=== PATIENT | female | born 1960 | race Caucasian/White ===

== ENCOUNTER 2023-03-14 13:07 | Outpatient (REF) | payer OTHER, SELFPAY ==
[2023-03-14 14:33] LABS: MANUAL DIFF FLAG NO
[2023-03-14 15:26] LABS: Basophils Absolute Auto 0.1 X10*3/uL (0.0-0.2); Basophils Percent Auto 1.2 % (0-2); Eosinophils Absolute Auto 0.4 X10*3/uL (0.0-0.4); Eosinophils Percent Auto 5.1 % (0-4); Hematocrit 40.1 % (37.0-47.0); Hemoglobin 13.3 g/dl (12.0-16.0); Imm Gran Abs Auto 0.02 X10*3/uL (0.00-0.03); Imm Gran Pct Auto 0.2 % (0.0-0.4); Lymphocytes Absolute Auto 2.8 X10*3/uL (1.2-4.9); Lymphocytes Percent Auto 33.3 % (20-40); Mean Corpuscular HGB Conc 33.2 g/dl (31.0-35.0); Mean Corpuscular Hemoglobin 29.3 pg (27.0-33.0); Mean Corpuscular Volume 88.3 fL (80.0-98.0); Mean Platelet Volume 9.7 fL (9.4-12.3); Monocytes Absolute Auto 0.8 X10*3/uL (0.1-1.2); Monocytes Percent Auto 9.4 % (2-11); Neutrophils Absolute Auto 4.2 x10*3/uL (2.0-8.3); Neutrophils Percent Auto 50.8 % (45-73); Platelet Count 246 X10*3/uL (160-400); Red Blood Count 4.54 X10*6/uL (4.20-5.50); Red Cell Distribution Width 12.9 % (11.0-16.0); White Blood Count 8.3 X10*3/uL (4.8-10.8)
== END 2023-03-14 13:08 | disposition home or self-care (01) ==
LOC: HO.LAB 13:07
PROVIDERS: PCP Internal Medicine; Visit Provider Internal Medicine Pulmonary Disease
DX: J45.909 Unspecified asthma, uncomplicated (principal); R06.02 Shortness of breath
CPT/HCPCS: 36415; 82785; 85025; 86003

== ENCOUNTER 2023-03-14 13:07 | Outpatient (AMB) | payer OTHER, SELFPAY ==
--- NOTE | 2023-03-14 13:29 | A.OFFVIS_ITS ---
Intake Vital Signs 03/14/23 13:30 Height 5 ft 1 in Weight 165 lb 5.547 oz BMI 31.2 BP 122/72 Blood Pressure Location Lt brachial Position Sitting Pulse 78 Pulse Source Doppler Pulse Oximetry (%) 96 Oxygen Delivery Method Room Air Intake Visit Reasons: Shortness of breath Allergies tetracycline Adverse Reaction (Mild, Verified 03/14/23 13:39) Stomach Upset HPI Shortness of breath HPI Details 62-year-old lady, nonsmoker, with underl saad history of IBS, referred for evaluation of chronic cough. Patient states that she initially started getting it in 2019 after COVID, with recent exacerbation several months prior. She was evaluated by her primary care provider and started on empiric Symbicort with significant improvement. She denies cough in or wheezing at this time. Patient does complain of environmental allergies for which she uses [id number] Malorie. She denies family history of lung disease. Patient denies exposure to industrial dusts. She does have a dog as a pet. [facility] Social History (Updated 03/14/23 @ 13:39 by Komal Vazquez Chad) Patient Tobacco Use Status: Never used Tobacco Review of Systems Const Denies daytime sleepiness, Denies excessive sweating, Denies fatigue, Denies fever(s), Denies lethargy, Denies malaise, Denies night sweats, Denies snoring and Denies weight loss Eyes Denies blurry vision and Denies itchy eyes ENT Denies nasal congestion, Denies post nasal drip, Denies sinus pain, Denies sinus pressure and Denies other ( Thrush) Card Denies chest pain, Denies pedal edema, Denies dyspnea, Denies orthopnea and Denies paroxysmal nocturnal dyspnea Resp Denies cough, Denies hemoptysis, Denies excessive phlegm production, Denies dyspnea, Denies snoring and Denies wheezing GI Denies abdominal pain and Denies heartburn Musc Denies myalgias, Denies arthralgias and Denies joint swelling Skin/Breast Denies rash Neuro Denies memory loss and Denies seizure-like activity Psych Denies abnormal sleep pattern, Denies anxiety and Denies memory loss Endo Denies excessive sweating, Denies fatigue and Denies heat intolerance Erick/Lymph Denies easy bruising Aller/Immun Denies itchy eyes, Denies seasonal rhinorrhea and Denies wheezing Physical Exam Vital Signs: Last Vital Signs Pulse 78 03/14/23 13:30 BP 122/72 03/14/23 13:30 Pulse Ox 96 03/14/23 13:30 Oxygen Delivery Method Room Air 03/14/23 13:30 BMI result Body Mass Index 31.2 Const General: no acute distress and alert Nutritional Appearance: not obese Orientation/consciousness: Other orientation findings ( oriented) HEENT Head: Yes atraumatic Eyes General: appearance normal, both eyes and all related structures Sclerae: sclerae normal EOM: EOMs intact bilaterally Neck Neck: Yes supple Lymphatic: no lymphadenopathy noted Resp Effort & Inspection: normal respiratory effort and no use of accessory muscles Auscultation: clear to auscultation bilaterally Cardio Rate: regular rate Rhythm: regular rhythm Heart sounds: no gallops, no murmurs and no rubs Skin General skin exam: other ( warm) Extrem General: No clubbing, No cyanosis and No edema Assessment & Plan Assessment & Plan (1) Environmental allergies: Code(s): Z91.09 - Other allergy status, other than to drugs and biological substances Plan: Will obtain RAST, IgE level, and CBC with differential for further evaluation. 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 Continue current regimen. Will request recent PFT results from [facility]. Orders: Orders Rast Allergen Today J45.909 - Unspecified asthma, uncomplicated Complete Blood Count Auto Diff Today J45.909 - Unspecified asthma, uncomplicated Coding Level of Care Code New Pt Level 4 (93158) Diagnoses Environmental allergies Z91.09 Asthma J45.909
[2023-03-14 13:30] VITALS: BP 122/72; PULSE 78; O2SAT 96; BMI 31.2
== END 2023-03-14 14:04 | disposition home or self-care (01) ==
PROVIDERS: Visit Provider Internal Medicine Pulmonary Disease
DX: Z91.09 Other allergy status, other than to drugs and biological substances (principal); J45.909 Unspecified asthma, uncomplicated
CPT/HCPCS: 99204

== ENCOUNTER 2023-04-05 15:39 | Outpatient (AMB) | payer OTHER, SELFPAY ==
--- NOTE | 2023-04-05 15:44 | MHC.OFFVIS ---
Intake Vital Signs 04/05/23 15:45 Height 5 ft 1 in Weight 169 lb 12.095 oz BMI 32.1 BP 110/62 Blood Pressure Location Rt brachial Position Sitting Pulse 83 Pulse Source Doppler Pulse Oximetry (%) 99 Oxygen Delivery Method Room Air Intake Visit Reasons: Shortness of breath Allergies tetracycline Adverse Reaction (Mild, Verified 04/05/23 15:48) Stomach Upset HPI Shortness of breath HPI Details 62-year-old lady, nonsmoker, with underlying history of IBS, referred for evaluation of chronic cough. Patient states that she initially started getting it in 2019 after COVID, with recent exacerbation several months prior. She was evaluated by her primary care provider and started on empiric Symbicort with significant improvement. She denies cough in or wheezing at this time. Patient does complain of environmental allergies for which she uses [id number] Malorie. She denies family history of lung disease. Patient denies exposure to industrial dusts. She does have a dog as a pet. At the last office visit patient has completed her immunologic testing that shows significant allergies to dust mites and peripheral eosinophilia. Her symptoms at this time a well controlled on Symbicort and albuterol MDI. She denies recent exacerbations. Pulmonary function test from [facility] reviewed 10 show underlying reactive airway disease with bronchodilator response. [facility] Social History Patient Tobacco Use Status: Never used Tobacco Review of Systems Const Denies daytime sleepiness, Denies excessive sweating, Denies fatigue, Denies fever(s), Denies lethargy, Denies malaise, Denies night sweats, Denies snoring and Denies weight loss Eyes Denies blurry vision and Denies itchy eyes ENT Denies nasal congestion, Denies post nasal drip, Denies sinus pain, Denies sinus pressure and Denies other ( Thrush) Card Denies chest pain, Denies pedal edema, Denies dyspnea, Denies orthopnea and Denies paroxysmal nocturnal dyspnea Resp Denies cough, Denies hemoptysis, Denies excessive phlegm production, Denies dyspnea, Denies snoring and Denies wheezing GI Denies abdominal pain and Denies heartburn Musc Denies myalgias, Denies arthralgias and Denies joint swelling Skin/Breast Denies rash Neuro Denies memory loss and Denies seizure-like activity Psych Denies abnormal sleep pattern, Denies anxiety and Denies memory loss Endo Denies excessive sweating, Denies fatigue and Denies heat intolerance Erick/Lymph Denies easy bruising Aller/Immun Denies itchy eyes, Denies seasonal rhinorrhea and Denies wheezing Physical Exam Vital Signs: Last Vital Signs Pulse 83 04/05/23 15:45 BP 110/62 04/05/23 15:45 Pulse Ox 99 04/05/23 15:45 Oxygen Delivery Method Room Air 04/05/23 15:45 BMI result Body Mass Index 32.1 Const General: no acute distress and alert Nutritional Appearance: not obese Orientation/consciousness: Other orientation findings ( oriented) HEENT Head: Yes atraumatic Eyes General: appearance normal, both eyes and all related structures Sclerae: sclerae normal EOM: EOMs intact bilaterally Neck Neck: Yes supple Lymphatic: no lymphadenopathy noted Resp Effort & Inspection: normal respiratory effort and no use of accessory muscles Auscultation: clear to auscultation bilaterally Cardio Rate: regular rate Rhythm: regular rhythm Heart sounds: no gallops, no murmurs and no rubs Skin General skin exam: other ( warm) Extrem General: No clubbing, No cyanosis and No edema Assessment & Plan Assessment & Plan (1) Asthma: Code(s): J45.909 - Unspecified asthma, uncomplicated Plan: Well controlled on current regimen of Symbicort and albuterol MDI. Continue current regimen. (2) Environmental allergies: Code(s): Z91.09 - Other allergy status, other than to drugs and biological substances Plan: Results of immunologic testing reviewed. Underlying as and a feel a with significant allergies to dust mites, if symptoms stop being controlled with inhaled corticosteroids, will consider immunologic therapy. Coding Level of Care Code Est Pt Level 4 (84841) Diagnoses Asthma J45.909 Environmental allergies Z91.09
[2023-04-05 15:45] VITALS: BP 110/62; PULSE 83; O2SAT 99; BMI 32.1
== END 2023-04-05 16:04 | disposition home or self-care (01) ==
PROVIDERS: Visit Provider Internal Medicine Pulmonary Disease
DX: J45.909 Unspecified asthma, uncomplicated (principal); Z91.09 Other allergy status, other than to drugs and biological substances
CPT/HCPCS: 99214

== ENCOUNTER → 2023-04-05 15:39 | Outpatient (BNVA) | payer OTHER, SELFPAY | PROVIDERS: Visit Provider Internal Medicine Pulmonary Disease | DX: J45.909 Unspecified asthma, uncomplicated (principal); Z91.09 Other allergy status, other than to drugs and biological substances ==

== ENCOUNTER 2023-10-17 14:41 | Outpatient (AMB) | payer OTHER, SELFPAY ==
[2023-10-17 14:49] VITALS: BP 122/78; PULSE 81; O2SAT 98
--- NOTE | 2023-10-17 14:49 | MHC.OFFVIS ---
Intake Vital Signs 10/17/23 14:49 Height 5 ft 1 in BP 122/78 Blood Pressure Location Rt brachial Position Sitting Pulse 81 Pulse Source Doppler Pulse Oximetry (%) 98 Oxygen Delivery Method Room Air Intake Visit Reasons: Shortness of breath Allergies tetracycline Adverse Reaction (Mild, Verified 04/05/23 15:48) Stomach Upset HPI Shortness of breath HPI Details 62-year-old lady, nonsmoker, with underlying history of IBS, followed for environmental allergies and cough variant. Patient states that her symptoms have been controlled on Symbicort and albuterol MDI/nebs. She denies any recent exacerbations. She continues to use Malorie as needed for environmental allergies. [facility] Social History Patient Tobacco Use Status: Never used Tobacco Review of Systems Const Denies daytime sleepiness, Denies excessive sweating, Denies fatigue, Denies fever(s), Denies lethargy, Denies malaise, Denies night sweats, Denies snoring and Denies weight loss Eyes Denies blurry vision and Denies itchy eyes ENT Denies nasal congestion, Denies post nasal drip, Denies sinus pain, Denies sinus pressure and Denies other ( Thrush) Card Denies chest pain, Denies pedal edema, Denies dyspnea, Denies orthopnea and Denies paroxysmal nocturnal dyspnea Resp Denies cough, Denies hemoptysis, Denies excessive phlegm production, Denies dyspnea, Denies snoring and Denies wheezing GI Denies abdominal pain and Denies heartburn Musc Denies myalgias, Denies arthralgias and Denies joint swelling Skin/Breast Denies rash Neuro Denies memory loss and Denies seizure-like activity Psych Denies abnormal sleep pattern, Denies anxiety and Denies memory loss Endo Denies excessive sweating, Denies fatigue and Denies heat intolerance Erick/Lymph Denies easy bruising Aller/Immun Denies itchy eyes, Denies seasonal rhinorrhea and Denies wheezing Physical Exam Vital Signs: Last Vital Signs Pulse 81 10/17/23 14:49 BP 122/78 10/17/23 14:49 Pulse Ox 98 10/17/23 14:49 Oxygen Delivery Method Room Air 10/17/23 14:49 Const General: no acute distress and alert Nutritional Appearance: not obese Orientation/consciousness: Other orientation findings ( oriented) HEENT Head: Yes atraumatic Eyes General: appearance normal, both eyes and all related structures Sclerae: sclerae normal EOM: EOMs intact bilaterally Neck Neck: Yes supple Lymphatic: no lymphadenopathy noted Resp Effort & Inspection: normal respiratory effort and no use of accessory muscles Auscultation: clear to auscultation bilaterally Cardio Rate: regular rate Rhythm: regular rhythm Heart sounds: no gallops, no murmurs and no rubs Skin General skin exam: other ( warm) Extrem General: No clubbing, No cyanosis and No edema Assessment & Plan Assessment & Plan (1) Asthma: Code(s): J45.909 - Unspecified asthma, uncomplicated Plan: Controlled on Symbicort, albuterol MDI/nebs. Continue current regimen. (2) Environmental allergies: Code(s): Z91.09 - Other allergy status, other than to drugs and biological substances Plan: Controlled with as needed Malorie. Continue current regimen. Coding Level of Care Code Est Pt Level 4 (35192) Diagnoses Asthma J45.909 Environmental allergies Z91.09
== END 2023-10-17 15:06 | disposition home or self-care (01) ==
PROVIDERS: PCP Internal Medicine; Visit Provider Internal Medicine Pulmonary Disease
DX: J45.909 Unspecified asthma, uncomplicated (principal); Z91.09 Other allergy status, other than to drugs and biological substances
CPT/HCPCS: 99214

== ENCOUNTER → 2023-10-17 14:41 | Outpatient (BNVA) | payer OTHER, SELFPAY | PROVIDERS: PCP Internal Medicine; Visit Provider Internal Medicine Pulmonary Disease | DX: J45.909 Unspecified asthma, uncomplicated (principal); Z91.09 Other allergy status, other than to drugs and biological substances ==

== ENCOUNTER 2024-04-21 14:29 | Outpatient (AMB) | payer OTHER, SELFPAY ==
[2024-04-21 14:32] VITALS: BP 102/62; PULSE 81; O2SAT 99
--- NOTE | 2024-04-21 14:32 | MHC.OFFVIS ---
Vital Signs 04/21/24 14:32 Height 5 ft 1 in BP 102/62 Blood Pressure Location Rt brachial Position Sitting Pulse 81 Pulse Source Doppler Pulse Oximetry (%) 99 Oxygen Delivery Method Room Air Intake Visit Reasons: Shortness of breath Intake Note: *Patient refused weight Allergies tetracycline Adverse Reaction (Mild, Verified 04/21/24 14:39) Stomach Upset HPI HPI Shortness of breath: Details: 62-year-old lady, nonsmoker, with underlying history of IBS, followed for environmental allergies and cough variant asthma. Patient states that her symptoms have been controlled on Symbicort and albuterol MDI/nebs. She denies any recent exacerbations. She does complain of raspy voice while using Symbicort. [facility] Social History Patient Tobacco Use Status: Never used Tobacco Review of Systems Const Denies daytime sleepiness, Denies excessive sweating, Denies fatigue, Denies fever(s), Denies lethargy, Denies malaise, Denies night sweats, Denies snoring and Denies weight loss Eyes Denies blurry vision and Denies itchy eyes ENT Denies nasal congestion, Denies post nasal drip, Denies sinus pain, Denies sinus pressure and Denies other ( Thrush) Card Denies chest pain, Denies pedal edema, Denies dyspnea, Denies orthopnea and Denies paroxysmal nocturnal dyspnea Resp Denies cough, Denies hemoptysis, Denies excessive phlegm production, Denies dyspnea, Denies snoring and Denies wheezing GI Denies abdominal pain and Denies heartburn Musc Denies myalgias, Denies arthralgias and Denies joint swelling Skin/Breast Denies rash Neuro Denies memory loss and Denies seizure-like activity Psych Denies abnormal sleep pattern, Denies anxiety and Denies memory loss Endo Denies excessive sweating, Denies fatigue and Denies heat intolerance Erick/Lymph Denies easy bruising Aller/Immun Denies itchy eyes, Denies seasonal rhinorrhea and Denies wheezing Physical Exam Vital Signs: Last Vital Signs Pulse 81 04/21/24 14:32 BP 102/62 04/21/24 14:32 Pulse Ox 99 04/21/24 14:32 Oxygen Delivery Method Room Air 04/21/24 14:32 Const General: no acute distress and alert Nutritional Appearance: not obese Orientation/consciousness: Other orientation findings ( oriented) HEENT Head: Yes atraumatic Eyes General: appearance normal, both eyes and all related structures Sclerae: sclerae normal EOM: EOMs intact bilaterally Neck Neck: Yes supple Lymphatic: no lymphadenopathy noted Resp Effort & Inspection: normal respiratory effort and no use of accessory muscles Auscultation: clear to auscultation bilaterally Cardio Rate: regular rate Rhythm: regular rhythm Heart sounds: no gallops, no murmurs and no rubs Skin General skin exam: other ( warm) Extrem General: No clubbing, No cyanosis and No edema Assessment & Plan Assessment & Plan (1) Asthma: Code(s): J45.909 - Unspecified asthma, uncomplicated Category: Medical Plan: Baseline well controlled Symbicort however patient has significant raspiness of her voice, will try powder inhaler - Breo. Continue albuterol MDI. Medications: New fluticasone furoate-vilanterol 200-25 mcg/dose (Breo Ellipta) 1 inh inhalation DAILY 60 ea 6RF Discontinued budesonide 180 mcg/actuation Discontinued Reason: Doctor's Order 1 inh inhalation BID 1 ea 6RF Coding Level of Care Code Est Pt Level 3 (70235) Diagnoses Asthma J45.909
== END 2024-04-21 14:53 | disposition home or self-care (01) ==
PROVIDERS: PCP Internal Medicine; Visit Provider Internal Medicine Pulmonary Disease
DX: J45.909 Unspecified asthma, uncomplicated (principal)
CPT/HCPCS: 99213

== ENCOUNTER → 2024-04-21 14:29 | Outpatient (BNVA) | payer OTHER, SELFPAY | PROVIDERS: PCP Internal Medicine; Visit Provider Internal Medicine Pulmonary Disease | DX: J45.909 Unspecified asthma, uncomplicated (principal); Z23 Encounter for immunization | CPT/HCPCS: 90471; 90656 ==

== ENCOUNTER 2024-07-14 14:34 | Outpatient (AMB) | payer OTHER, SELFPAY ==
--- NOTE | 2024-07-14 14:41 | A.OFFVIS_ITS ---
Vital Signs 07/14/24 14:43 Weight 165 lb 5.547 oz BP 118/72 Blood Pressure Location Lt brachial Position Sitting Pulse 80 Pulse Source Pulse Oximeter Pulse Oximetry (%) 98 Oxygen Delivery Method Room Air Intake Visit Reasons: chest congestion, cough, wheeze Allergies tetracycline Adverse Reaction (Mild, Verified 07/14/24 14:45) Stomach Upset Medication List - Last Reconciled 07/14/24 by Lorena Dawson LPN albuterol sulfate 90 mcg/actuation inhalation albuterol sulfate mg inhalation alendronate 70 mg PO QWEEK budesonide-formoterol 160-4.5 mcg/actuation (Symbicort) 2 puffs inhalation BID HPI HPI chest congestion, cough, wheeze: Details: 64-year-old lady, nonsmoker, with underlying history of IBS, followed for environmental allergies and cough variant asthma. After the last office visit patient was unable to receive her inhaled corticosteroid/long-acting beta agonist with resultant suboptimal control of his symptoms and now also with an acute exacerbation. [facility] Social History (Reviewed 04/05/23 @ 15:49 by Komal Vazquez [facility]) Patient Tobacco Use Status: Never used Tobacco Review of Systems Const Denies daytime sleepiness, Denies excessive sweating, Denies fatigue, Denies fever(s), Denies lethargy, Denies malaise, Denies night sweats, Denies snoring and Denies weight loss Eyes Denies blurry vision and Denies itchy eyes ENT Denies nasal congestion, Denies post nasal drip, Denies sinus pain, Denies sinus pressure and Denies other ( Thrush) Card Denies chest pain, Denies pedal edema, Denies dyspnea, Denies orthopnea and Denies paroxysmal nocturnal dyspnea Resp Reports cough, Denies hemoptysis, Denies excessive phlegm production, Denies dyspnea, Denies snoring and Reports wheezing GI Denies abdominal pain and Denies heartburn Musc Denies myalgias, Denies arthralgias and Denies joint swelling Skin/Breast Denies rash Neuro Denies memory loss and Denies seizure-like activity Psych Denies abnormal sleep pattern, Denies anxiety and Denies memory loss Endo Denies excessive sweating, Denies fatigue and Denies heat intolerance Erick/Lymph Denies easy bruising Aller/Immun Denies itchy eyes, Denies seasonal rhinorrhea and Reports wheezing Physical Exam Vital Signs: Last Vital Signs Pulse 80 07/14/24 14:43 BP 118/72 07/14/24 14:43 Pulse Ox 98 07/14/24 14:43 Oxygen Delivery Method Room Air 07/14/24 14:43 Const General: no acute distress and alert Nutritional Appearance: not obese Orientation/consciousness: Other orientation findings ( oriented) HEENT Head: Yes atraumatic Eyes General: appearance normal, both eyes and all related structures Sclerae: sclerae normal EOM: EOMs intact bilaterally Neck Neck: Yes supple Lymphatic: no lymphadenopathy noted Resp Effort & Inspection: normal respiratory effort and no use of accessory muscles Auscultation: wheezes (Expiratory bilateral) Cardio Rate: regular rate Rhythm: regular rhythm Heart sounds: no gallops, no murmurs and no rubs Skin General skin exam: other ( warm) Extrem General: No clubbing, No cyanosis and No edema Assessment & Plan Assessment & Plan (1) Asthma: Code(s): J45.909 - Unspecified asthma, uncomplicated Category: Medical Plan: Suboptimally controlled as patient was not able to receive her ics/Laba and now also with an acute exacerbation. Will treat acute exacerbation with a course of prednisone and reorder Symbicort. Continue albuterol MDI/nebs. Medications: New prednisone 40 mg (2 x 20 mg) PO DAILY 10 tabs 0RF Refilled budesonide-formoterol 160-4.5 mcg/actuation (Symbicort) 2 puffs inhalation BID 10.2 grams 6RF Coding Level of Care Code Est Pt Level 3 (35434) Diagnoses Asthma J45.909
[2024-07-14 14:43] VITALS: BP 118/72; PULSE 80; O2SAT 98
== END 2024-07-14 14:58 | disposition home or self-care (01) ==
PROVIDERS: PCP Internal Medicine; Visit Provider Internal Medicine Pulmonary Disease
DX: J45.909 Unspecified asthma, uncomplicated (principal)
CPT/HCPCS: 99213

== ENCOUNTER → 2024-07-14 14:34 | Outpatient (BNVA) | payer OTHER, SELFPAY | PROVIDERS: PCP Internal Medicine; Visit Provider Internal Medicine Pulmonary Disease ==

== ENCOUNTER 2024-08-19 13:45 | Outpatient (AMB) | payer OTHER, SELFPAY ==
[2024-08-19 13:58] VITALS: BP 118/64; PULSE 92; O2SAT 96; BMI 31.2
--- NOTE | 2024-08-19 13:58 | A.OFFVIS_ITS ---
Vital Signs 08/19/24 13:58 Height 5 ft 1 in Weight 165 lb BMI 31.2 BP 118/64 Blood Pressure Location Lt brachial Position Sitting Pulse 92 Pulse Source Doppler Pulse Oximetry (%) 96 Oxygen Delivery Method Room Air Intake Visit Reasons: Shortness of breath Allergies tetracycline Adverse Reaction (Mild, Verified 07/14/24 14:45) Stomach Upset HPI HPI Shortness of breath: Details: 64-year-old lady, nonsmoker, with underlying history of IBS, followed for environmental allergies and cough variant asthma. Patient has recently started on Symbicort, however she still with ongoing exacerbation symptomatic with significant wheezing and dyspnea. Also, since last visit patient had COVID that contributed to her ongoing exacerbation. [facility] Social History Patient Tobacco Use Status: Never used Tobacco Review of Systems Const Denies daytime sleepiness, Denies excessive sweating, Denies fatigue, Denies fever(s), Denies lethargy, Denies malaise, Denies night sweats, Denies snoring and Denies weight loss Eyes Denies blurry vision and Denies itchy eyes ENT Denies nasal congestion, Denies post nasal drip, Denies sinus pain, Denies sinus pressure and Denies other ( Thrush) Card Denies chest pain, Denies pedal edema, Reports dyspnea, Denies orthopnea and Denies paroxysmal nocturnal dyspnea Resp Denies cough, Denies hemoptysis, Denies excessive phlegm production, Reports dyspnea, Denies snoring and Reports wheezing GI Denies abdominal pain and Denies heartburn Musc Denies myalgias, Denies arthralgias and Denies joint swelling Skin/Breast Denies rash Neuro Denies memory loss and Denies seizure-like activity Psych Denies abnormal sleep pattern, Denies anxiety and Denies memory loss Endo Denies excessive sweating, Denies fatigue and Denies heat intolerance Erick/Lymph Denies easy bruising Aller/Immun Denies itchy eyes, Denies seasonal rhinorrhea and Reports wheezing Physical Exam Vital Signs: Last Vital Signs Pulse 92 08/19/24 13:58 BP 118/64 08/19/24 13:58 Pulse Ox 96 08/19/24 13:58 Oxygen Delivery Method Room Air 08/19/24 13:58 BMI result Body Mass Index 31.2 Const General: no acute distress and alert Nutritional Appearance: not obese Orientation/consciousness: Other orientation findings ( oriented) HEENT Head: Yes atraumatic Eyes General: appearance normal, both eyes and all related structures Sclerae: sclerae normal EOM: EOMs intact bilaterally Neck Neck: Yes supple Lymphatic: no lymphadenopathy noted Resp Effort & Inspection: normal respiratory effort and no use of accessory muscles Auscultation: clear to auscultation bilaterally Cardio Rate: regular rate Rhythm: regular rhythm Heart sounds: no gallops, no murmurs and no rubs Skin General skin exam: other ( warm) Extrem General: No clubbing, No cyanosis and No edema Assessment & Plan Assessment & Plan (1) Asthma: Code(s): J45.909 - Unspecified asthma, uncomplicated Category: Medical Plan: Baseline controlled with Symbicort and albuterol MDI/duo nebs. Now with an acute exacerbation, will treat with a course of prednisone. Orders: Orders XR chest 2V Today J45.909 - Unspecified asthma, uncomplicated Medications: New prednisone Take 4 tabs daily for 5 days, then go down by 1 tab every 5 days 10 mg PO DIRECTED 50 tabs 0RF J45.909 - Unspecified asthma, uncomplicated ipratropium-albuterol 0.5 mg-3 mg(2.5 mg base)/3 mL 3 mL inhalation Q4-6H PRN 180 mL 6RF wheezing J45.909 - Unspecified asthma, uncomplicated Coding Level of Care Code Est Pt Level 3 (79455) Diagnoses Asthma J45.909
--- OUTSIDE RECORDS SUMMARY | 2024-08-19 15:09 | XMS_ITS | Clinical Summary ---
Author Organization [facility] Address [address] [place] [address] Phone Care Team Providers Care Acquisitions Logistics Analyst Name Role Phone Kenia Johnson MD Primary Care Provider [phone] Encounters Date Type Department Care Team Description 06/01/2024 6:50 AM EST - 06/01/2024 11:59 PM EST [facility] [address] [address] Encounter for screening mammogram for breast cancer Discharge Disposition: Home or Self Care from Last 3 Months Surgical History Surgery Date Site/Laterality Comments BREAST MASS EXCISION 07/08/2003 - 07/07/2004 Left Social History Tobacco Use Types Packs/Day Years Used Date Smoking Tobacco: Never Assessed Comments No Sex and Gender Information Value Date Recorded Sex Assigned at Not on file Legal Sex Female 2:26 AM EST Gender Identity Not on file Sexual Orientation Not on file Obstetrics History Para Term AB IAB SAB Ectopic Multiple Livin g Live Births 2 Last Filed Vital Signs Vital Sign Reading Time Taken Comments Blood Pressure - - Pulse - - Temperature - - Respiratory Rate - - Oxygen Saturation - - Inhaled Oxygen Concentration - - Weight 77.1 kg (170 lb) 06/01/2024 7:02 AM EST Height 154.9 cm (5' 1 ) 06/01/2024 7:02 AM EST Body Mass Index 32.12 06/01/2024 7:02 AM EST Plan of Treatment Health Maintenance Due Date Last Done Comments Pneumococcal Vaccine: Pediatrics (0 to 5 Years) and At-Risk Patients (6 to 64 Years) (1 of 2 - PCV) 1968 Cervical Cancer Screening: Pap Smear 1983 Zoster Vaccines (1 of 2) 2012 RSV Immunization Patients 60+ Years Old (1 - Risk 60-74 years 1-dose series) 2022 Colorectal Cancer Screening: Colonoscopy 06/10/2022 Depression Screening 06/10/2022 HIV Screening 06/10/2022 Hepatitis C Screening 06/10/2022 Social Influencers of Health Screening 06/10/2022 COVID-19 Vaccine (3 - season) 2024 10/21/2020, 09/22/2020 Breast Cancer Screening 06/01/2026 06/01/20, 05/10/2023, 05/07/2022, Additional history exists Osteoporosis Screening (Bone Density Screening) 06/04/2028 06/04/2018 DTaP,Tdap,and Td Vaccines (3 - Td or Tdap) 03/31/2034 03/31/2024, 05/11/2013 Influenza Vaccine Completed 04/21/2024, , 05/25/2021, Additional history exists HIB Vaccines Aged Out No longer eligi ble based on patient's age to complete this topic HPV Vaccines Aged Out No longer eligi ble based on patient's age to complete this topic Hepatitis A Vaccines Aged Out No long er eligible based on patient's age to complete this topic Hepatitis B Vaccines Aged Out No long er eligible based on patient's age to complete this topic IPV Vaccines Aged Out No longer eligi ble based on patient's age to complete this topic MMR Vaccines Aged Out No longer eligi ble based on patient's age to complete this topic Meningococcal ACWY Vaccine Aged Out N o longer eligible based on patient's age to complete this topic RSV Immunization Patients Under 20 months Aged Out No longer eligible based on patient's age to complete this topic Varicella Vaccines Aged Out No longer eligible based on patient's age to complete this topic Procedures Procedure Name Priority Date/Time Associated Diagnosis Comments MG MAMMO DIGITAL SCREENING W NALDO BILAT Routine 06/01/2024 7:17 AM EST Encounter for screening mammogram for breast cancer [facility] DEXA AXIAL SKELETON Routine 06/04/2018 4:49 PM EST Encounter for screening for osteoporosis from Last 3 Months or Most Recently Relevant to Health Maintenance Results * MG Mammo Digital Screening w Naldo bilat (06/01/2024 7:17 AM EST) Anatomical Region Laterality Modality Breast Bilateral Mammography 06/01/2024 11:2 6 AM EST Impressions 06/01/2024 11:28 AM EST Stable mammographic appearance of the breasts. No evidence of malignancy is seen. A negative mammogram in the presence of a clinically suspicious palpable abnormality does not preclude the possibility of malignancy or alter the indications for biopsy. BI-RADS CATEGORY: 2 - BENIGN RECOMMENDATION: Screening bilateral mammogram is recommended in 1 year. Mammo Location: [facility], [address] [place] [address], [id number], . -------- FINAL REPORT -------- Dictated By: Cadence Porras Dictated Date: 06/01/2024 11:26 ET Assigned Physician: Cadence Porras Reviewed and Electronically Signed By: Cadence Porras Signed Date: 06/01/2024 11:28 ET Workstation ID: [id number] Transcribed By: Self Edit Transcribed Date: 06/01/2024 11:26 ET Narrative 06/01/2024 11:28 AM EST HISTORY: Screening. Excisional biopsy of the left breast in 2003, pathology benign. Paternal great aunt had breast carcinoma. COMPARISON: 05/10/23, 05/07/22, 05/04/21 ?? TECHNIQUE: Bilateral digital breast tomosynthesis was performed in the CC and MLO projections. Computer aided detection with Impulsiv 3D 3.1 was employed. BREAST DENSITY: B - There are scattered areas of fibroglandular density. FINDINGS: Architectural distortion in the anterior 12:00 position of the left breast is unchanged, consistent with surgical scar. No suspicious masses, grouped microcalcifications, or areas of architectural distortion are seen. Scattered subcentimeter circumscribed nodules are again seen bilaterally, without significant change. Few coarse, benign calcifications are again noted. The skin and vascularity are unremarkable. Procedure Note Cadence Porras MD - 06/01/2024 HISTORY: Screening. Excisional biopsy of the left breast in 2003,pathology benign. Paternal great aunt had breast carcinoma. COMPARISON: 05/10/23, 05/07/22, 05/04/21 TECHNIQUE: Bilateral digital breast tomosynthesis was performed in the CCand MLO projections. Computer aided detection with Impulsiv 3D 3.1was employed. BREAST DENSITY: B - There are scattered areas of fibroglandular density. FINDINGS: Architectural distortion in the anterior 12:00 position of the left breastis unchanged, consistent with surgical scar. No suspicious masses, grouped microcalcifications, or areas ofarchitectural distortion are seen. Scattered subcentimeter circumscribednodules are again seen bilaterally, without significant change. Fewcoarse, benign calcifications are again noted. The skin and vascularityare unremarkable. IMPRESSION: Stable mammographic appearance of the breasts. No evidence of malignancyis seen. A negative mammogram in the presence of a clinically suspicious palpableabnormality does not preclude the possibility of malignancy or alter theindications for biopsy. BI-RADS CATEGORY: 2 - BENIGN RECOMMENDATION: Screening bilateral mammogram is recommended in 1 year. Mammo Location: [facility], [address] [place] [address], [id number], . -------- FINAL REPORT -------- Dictated By: Cadence Porras Dictated Date: 06/01/2024 11:26 ET Assigned Physician: Cadence Porras Reviewed and Electronically Signed By: Cadence Porras Signed Date: 06/01/2024 11:28 ET Workstation ID: [id number] Transcribed By: Self Edit Transcribed Date: 06/01/2024 11:26 ET us Self Referral Sppl IMG BI PROCEDURES Final Resul t * WALLY DEXA AXIAL SKELETON (06/04/2018 4:49 PM EST) Anatomical Region Laterality Modality Mammography 06/03/2018 2:39 PM EST Narrative 06/04/2018 4:49 PM EST [facility] Diagnostic Imaging Department [address] [place] [address] Patient: ??MARITZA-JOJO JOHNSON I ?/Age/Sex: 1960 - 57 - F Unit#: ??[id number] ? Location/Status: ??SPDIMAM/REG CLI ? Mnemonic/Ordering Site: ??MAMDEXAAX/SPMAM Ordering Physician: ??FELIPA WALDRON CNM [facility] Dexa Axial Skeleton - 06/03/18 - 1500 [facility] Dexa Axial Skeleton INDICATION: POSTMENOPAUSAL Technique: Bone densitometry was performed utilizing dual energy x-ray absorptiometry (DEXA). The lumbar spine is evaluated in the AP projection from L1 through L4. The proximal femora are evaluated in the AP projection bilaterally. The patient is taking calcium and vitamin D supplements. Findings: AP spine: Bone mineral density: 0.958 gm/cm2 T-score: -1.9 Femoral total (mean, bilateral): Bone mineral density: 0.772 gm/cm2 T-score: -1.9 IMPRESSION: Findings suggesting osteopenia, placing the patient at risk for fracture. The FRAX result suggests a 10 year probability of major osteoporotic fracture of 3.9 % and hip fracture of 0.4%. 10 year probability of osteoporotic fracture may be lower than FRAX estimate if patient has received treatment. [id number] A report detailing these results has been enclosed. Dictating Physician: ??GUSTAVO JETER MD Electronically Signed by: ??GUSTAVO JETER MD Dic Date/Time: ??06/04/181648 Sign date/Time: ??06/04/181648 Procedure Note Gustavo Jeter MD - 06/26/2022 [facility] Diagnostic Imaging Department [address] [place] [address] Patient: JOJO OWENS Odalis /Age/Sex: 1960 - 57 - F Unit#: [id number] Location/Status: [facility] CLI [facility] Ordering Physician: FELIPA WALDRON CNM [facility] Dexa Axial Skeleton - 06/03/18 - 1500 [facility] Dexa Axial Skeleton INDICATION: POSTMENOPAUSAL Technique: Bone densitometry was performed utilizing dual energy x-ray absorptiometry (DEXA). The lumbar spine is evaluated in the AP projectionfrom L1 through L4. The proximal femora are evaluated in the AP projection bilaterally. The patient is taking calcium and vitamin D supplements. Findings: AP spine: Bone mineral density: 0.958 gm/cm2 T-score: -1.9 Femoral total (mean, bilateral): Bone mineral density: 0.772 gm/cm2 T-score: -1.9 IMPRESSION: Findings suggesting osteopenia, placing the patient at risk forfracture. The FRAX result suggests a 10 year probability of major osteoporoticfracture of 3.9 % and hip fracture of 0.4%. 10 year probability of osteoporotic fracture may be lower than FRAXestimate if patient has received treatment. [id number] A report detailing these results has been enclosed. Dictating Physician: GUSTAVO JETER MD Electronically Signed by: GUSTAVO JETER MD Date/Time: 06/04/18 164 Sign date/Time: 06/04/181648 Felipa Shahriar ZAMORA IMG BI PROCEDURES Final Result from Last 3 Months or Most Recently Relevant to Health Maintenance Insurance [employer] Care Teams Acquisitions Logistics Analyst Relationship Specialty Start Date End Date Kenia Johnson MD [address] [place] [address] PCP - General Internal Medicine 05/04/24
== END 2024-08-19 14:35 | disposition home or self-care (01) ==
PROVIDERS: PCP Internal Medicine; Visit Provider Internal Medicine Pulmonary Disease
DX: J45.909 Unspecified asthma, uncomplicated (principal)
CPT/HCPCS: 99213

== ENCOUNTER 2024-08-19 13:45 | Outpatient (REF) | payer OTHER, SELFPAY ==
--- NOTE | ~2024-08-19 | XR_ITS ---
EXAMINATION: XR CHEST CLINICAL INFORMATION: J45.909 - Unspecified asthma, uncomplicated COMPARISON: None available. TECHNIQUE: 2 views of the chest were obtained. FINDINGS: The cardiac, hilar, and mediastinal contours are normal. The lungs are clear bilaterally. There is no pneumothorax or pleural effusion. There is no focal osseous or soft tissue abnormality. XR/XR chest 2V IMPRESSION: Normal chest. Electronically signed by: Trever Garcia MD 08/19/2024 03:14 PM STEVE JACKSON
--- OUTSIDE RECORDS SUMMARY | 2024-08-19 15:51 | XMS_ITS | Clinical Summary ---
Author Organization [facility] Address [address] [place] [address] Phone Care Team Providers Care Service Desk Analyst Name Role Phone Kenia Johnson MD Primary Care Provider [phone] Encounters Date Type Department Care Team Description 06/01/2024 6:50 AM EST - 06/01/2024 11:59 PM EST [facility] [address] [address] Encounter for screening mammogram for [...] year. Mammo Location: [facility], [address] [place] [address], [phone], . -------- FINAL REPORT -------- Dictated By: Cadence Porras Dictated Date: 06/01/2024 11:26 ET Assigned Physician: Cadence Porras Reviewed and Electronically Signed By: Cadence Porras Signed Date: 06/01/2024 11:28 ET Workstation ID: [id number] Transcribed By: Self Edit Transcribed Date: 06/01/2024 11:26 ET Narrative 06/01/2024 11:28 AM EST HISTORY: Screening. Excisional biopsy of the left breast in 2003, pathology benign. Paternal great aunt had breast carcinoma. COMPARISON: 05/10/23, 05/07/22, 05/04/21 ?? TECHNIQUE: Bilateral digital breast tomosynthesis was performed in the CC and MLO projections. Computer aided detection with Aconex 3D 3.1 was employed. BREAST DENSITY: B [...] CCand MLO projections. Computer aided detection with Aconex 3D 3.1was employed. BREAST DENSITY: B - [...] year. Mammo Location: [facility], [address] [place] [address], [phone], . -------- FINAL REPORT -------- Dictated By: Cadence Porras Dictated Date: 06/01/2024 11:26 ET Assigned Physician: Cadence Porras Reviewed and Electronically Signed By: Cadence Porras Signed Date: 06/01/2024 11:28 ET Workstation ID: [id number] Transcribed By: Self Edit Transcribed Date: 06/01/2024 11:26 ET us Self Referral Sppl IMG BI PROCEDURES Final Resul t * WALLY DEXA AXIAL SKELETON (06/04/2018 4:49 PM EST) Anatomical Region Laterality Modality Mammography 06/03/2018 2:39 PM EST Narrative 06/04/2018 4:49 PM EST [facility] Diagnostic Imaging Department [address] [place] [address] Patient: ??MARITZA-JOJO JOHNSON I ?/Age/Sex: 1960 - 57 - F Unit#: ??[id number] ? Location/Status: ??SPDIMAM/REG CLI ? Mnemonic/Ordering Site: ??MAMDEXAAX/SPMAM Ordering Physician: ??FELIPA WALDRON CNM [facility] Dexa Axial Skeleton - 06/03/18 - 1500 [facility] Dexa Axial Skeleton INDICATION: POSTMENOPAUSAL Technique: Bone [...] FRAX estimate if patient has received treatment. [id number] A report detailing these results has been enclosed. Dictating Physician: ??GUSTAVO JETER MD Electronically Signed by: ??GUSTAVO JETER MD Dic Date/Time: ??06/04/181648 Sign date/Time: ??06/04/181648 Procedure Note Gustavo Jeter MD - 06/26/2022 [facility] Diagnostic Imaging Department [address] [place] [address] Patient: JOJO OWENS Odalis /Age/Sex: 1960 - 57 - F Unit#: [id number] Location/Status: [facility] CLI [facility] Ordering Physician: FELIPA WALDRON CNM [facility] [...] than FRAXestimate if patient has received treatment. [id number] A report detailing these results has been enclosed. Dictating Physician: GUSTAVO JETER MD Electronically Signed by: GUSTAVO JETER MD Date/Time: 06/04/18 164 Sign date/Time: 06/04/181648 Felipa Shahriar ZAMORA IMG BI PROCEDURES Final Result from Last 3 Months or Most Recently Relevant to Health Maintenance Insurance [employer] Care Teams Service Desk Analyst Relationship Specialty Start Date End Date Kenia Johnson MD [address] [place] [address] PCP - General Internal Medicine 05/04/24
== END 2024-08-19 13:46 | disposition home or self-care (01) ==
LOC: HO.XRAY 13:45
PROVIDERS: PCP Internal Medicine; Visit Provider Internal Medicine Pulmonary Disease
DX: J45.909 Unspecified asthma, uncomplicated (principal)
CPT/HCPCS: 71046

== ENCOUNTER → 2024-08-19 14:40 | Outpatient (BNV) | payer OTHER, SELFPAY | PROVIDERS: PCP Internal Medicine; Visit Provider Radiology Diagnostic Radiology | DX: J45.909 Unspecified asthma, uncomplicated (principal) | CPT/HCPCS: 71046 ==

== ENCOUNTER 2024-09-17 14:10 | Outpatient (AMB) | payer OTHER, SELFPAY ==
[2024-09-17 14:18] VITALS: BP 102/60; PULSE 79; O2SAT 97; BMI 31.7
--- NOTE | 2024-09-17 14:18 | MHC.OFFVIS ---
Vital Signs 09/17/24 14:18 Height 5 ft 1 in Weight 167 lb 8.821 oz BMI 31.7 BP 102/60 Blood Pressure Location Rt brachial Position Sitting Pulse 79 Pulse Source Doppler Pulse Oximetry (%) 97 Oxygen Delivery Method Room Air Intake Visit Reasons: Shortness of breath Allergies tetracycline Adverse Reaction (Mild, Verified 09/17/24 14:31) Stomach Upset HPI HPI Shortness of breath: Details: 64-year-old lady, nonsmoker, with underlying history of IBS, followed for environmental allergies and cough variant asthma. She has been using Symbicort, duo nebs, and albuterol MDI with reasonable control, however she does get significant voice hoarseness with any inhaled corticosteroid And she required several prednisone courses to keep symptoms better controlled. [facility] Social History Patient Tobacco Use Status: Never used Tobacco Review of Systems Const Denies daytime sleepiness, Denies excessive sweating, Denies fatigue, Denies fever(s), Denies lethargy, Denies malaise, Denies night sweats, Denies snoring and Denies weight loss Eyes Denies blurry vision and Denies itchy eyes ENT Denies nasal congestion, Denies post nasal drip, Denies sinus pain, Denies sinus pressure and Denies other ( Thrush) Card Denies chest pain, Denies pedal edema, Denies dyspnea, Denies orthopnea and Denies paroxysmal nocturnal dyspnea Resp Denies cough, Denies hemoptysis, Denies excessive phlegm production, Denies dyspnea, Denies snoring and Denies wheezing GI Denies abdominal pain and Denies heartburn Musc Denies myalgias, Denies arthralgias and Denies joint swelling Skin/Breast Denies rash Neuro Denies memory loss and Denies seizure-like activity Psych Denies abnormal sleep pattern, Denies anxiety and Denies memory loss Endo Denies excessive sweating, Denies fatigue and Denies heat intolerance Erick/Lymph Denies easy bruising Aller/Immun Denies itchy eyes, Denies seasonal rhinorrhea and Denies wheezing Physical Exam Vital Signs: Last Vital Signs Pulse 79 09/17/24 14:18 BP 102/60 09/17/24 14:18 Pulse Ox 97 09/17/24 14:18 Oxygen Delivery Method Room Air 09/17/24 14:18 BMI result Body Mass Index 31.7 Const General: no acute distress and alert Nutritional Appearance: not obese Orientation/consciousness: Other orientation findings ( oriented) HEENT Head: Yes atraumatic Eyes General: appearance normal, both eyes and all related structures Sclerae: sclerae normal EOM: EOMs intact bilaterally Neck Neck: Yes supple Lymphatic: no lymphadenopathy noted Resp Effort & Inspection: normal respiratory effort and no use of accessory muscles Auscultation: clear to auscultation bilaterally Cardio Rate: regular rate Rhythm: regular rhythm Heart sounds: no gallops, no murmurs and no rubs Skin General skin exam: other ( warm) Extrem General: No clubbing, No cyanosis and No edema Assessment & Plan Assessment & Plan (1) Asthma: Code(s): J45.909 - Unspecified asthma, uncomplicated Category: Medical Plan: Reasonable control, however still with breakthrough symptoms requiring prednisone patient wants to read more about possible immunologic therapy. Continue baseline regimen of Symbicort, duo nebs, and albuterol MDI. (2) Environmental allergies: Code(s): Z91.09 - Other allergy status, other than to drugs and biological substances Category: Medical Plan: Suboptimally controlled. Patient would qualify for Dupixent on,, or [employer]. Patient wants to think about it. Coding Level of Care Code Est Pt Level 4 (65669) Diagnoses Asthma J45.909 Environmental allergies Z91.09
--- OUTSIDE RECORDS SUMMARY | 2024-09-17 18:00 | XMS_ITS | Clinical Summary ---
Author Organization [facility] Address [address] [place] [address] Phone Care Team Providers Care Master Of Ceremonies Name Role Phone Kenia Johnson MD Primary Care Provider [phone] Surgical History Surgery Date Site/Laterality Comments BREAST [...] Due Date Last Done Comments Pneumococcal Vaccine: 50+ Years (1 of 2 - PCV) 1981 Pneumococcal Vaccine: Pediatrics (0 to 5 Years) and At-Risk Patients (6 to 64 Years) (1 of 2 - PCV) 1981 Cervical Cancer Screening: Pap Smear 1983 Zoster Vaccines (1 of 2) 2012 RSV Immunization Patients 60+ Years Old (1 - Risk 60-74 years 1-dose series) 2022 Colorectal Cancer Screening: Colonoscopy 06/10/2022 Depression Screening 06/10/2022 HIV Screening 06/10/2022 Hepatitis C Screening 06/10/2022 Social Influencers of Health Screening 06/10/2022 COVID-19 Vaccine (3 - season) 2024 10/21/2020, 09/22/2020 Breast Cancer Screening 06/01/2026 06/01/20 24, 05/10/2023, 05/07/2022, Additional history exists Osteoporosis Screening [...] patient's age to complete this topic Meningococcal B Vacine Aged Out No lo nger eligible based on patient's age to complete [...] Encounter for screening mammogram for breast cancer [facility] DEXA AXIAL SKELETON Routine 06/04/2018 4:49 PM [...] year. Mammo Location: [facility], [address] [place] [address], [address], . -------- FINAL REPORT -------- Dictated By: Cadence Porras Dictated Date: 06/01/2024 11:26 ET Assigned Physician: Cadence Porras Reviewed and Electronically Signed By: Cadence Porras Signed Date: 06/01/2024 11:28 ET Workstation ID: [id number] Transcribed By: Self Edit Transcribed Date: 06/01/2024 11:26 ET Narrative 06/01/2024 11:28 AM EST HISTORY: Screening. Excisional biopsy of the left breast in 2003, pathology benign. Paternal great aunt had breast carcinoma. COMPARISON: 05/10/23, 05/07/22, 05/04/21 ?? TECHNIQUE: Bilateral digital breast tomosynthesis was performed in the CC and MLO projections. Computer aided detection with Sxbbm 3D 3.1 was employed. BREAST DENSITY: B [...] CCand MLO projections. Computer aided detection with Sxbbm 3D 3.1was employed. BREAST DENSITY: B - [...] year. Mammo Location: [facility], [address] [place] [address], [phone], . -------- FINAL REPORT -------- Dictated By: Cadence Porras Dictated Date: 06/01/2024 11:26 ET Assigned Physician: Cadence Porras Reviewed and Electronically Signed By: Cadence Porras Signed Date: 06/01/2024 11:28 ET Workstation ID: [id number] Transcribed By: Self Edit Transcribed Date: 06/01/2024 11:26 ET us Self Referral Sppl IMG BI PROCEDURES Final Resul t * [facility] DEXA AXIAL SKELETON (06/04/2018 4:49 PM EST) Anatomical Region Laterality Modality Mammography 06/03/2018 2:39 PM EST Narrative 06/04/2018 4:49 PM EST [facility] Diagnostic Imaging Department [address] [place] [address] Patient: ??AVILES-MESITI,JOJO I ?/Age/Sex: 1960 - 57 - F Unit#: ??[id number] ? Location/Status: ??SPDIMAM/REG CLI ? Mnemonic/Ordering Site: ??MAMDEXAAX/SPMAM Ordering Physician: ??FELIPA BESS CNM [facility] Dexa Axial Skeleton - 06/03/18 - 1500 [...] FRAX estimate if patient has received treatment. [id number] A report detailing these results has been enclosed. Dictating Physician: ??GUSTAVO JETER MD Electronically Signed by: ??GUSTAVO JETER MD Dic Date/Time: ??06/04/181648 Sign date/Time: ??06/04/181648 Procedure Note Gustavo Jeter MD - 06/26/2022 [facility] Diagnostic Imaging Department [address] [place] [address] Patient: JOJO OWENS I /Age/Sex: 1960 - 57 - F Unit#: [id number] Location/Status: SPDIMAM/REG CLI Mnemonic/Ordering Site: MAMDEXAAX/SPMAM Ordering Physician: FELIPA BESS CNM [facility] Dexa Axial Skeleton - 06/03/18 - 1500 [facility] Dexa Axial Skeleton INDICATION: POSTMENOPAUSAL Technique: Bone [...] than FRAXestimate if patient has received treatment. [id number] A report detailing these results has been enclosed. Dictating Physician: GUSTAVO JETER MD Electronically Signed by: GUSTAVO JETER MD Dic Date/Time: 06/04/181648 Sign date/Time: 06/04/181648 us Felipa Bess CNM IMG BI PROCEDURES Final Result from Last 3 Months or Most Recently Relevant to Health Maintenance Insurance [employer] Care Teams Master Of Ceremonies Relationship Specialty Start Date End Date Kenia Johnson MD [address] [place] [address] PCP - General Internal Medicine 05/04/24
== END 2024-09-17 14:42 | disposition home or self-care (01) ==
LOC: HO.HPS 14:10
PROVIDERS: PCP Internal Medicine; Visit Provider Internal Medicine Pulmonary Disease
DX: J45.909 Unspecified asthma, uncomplicated (principal); Z91.09 Other allergy status, other than to drugs and biological substances
CPT/HCPCS: 99214

== ENCOUNTER 2025-02-09 13:08 | Outpatient (AMB) | payer OTHER, SELFPAY ==
[2025-02-09 13:17] VITALS: BP 108/62; PULSE 73; O2SAT 98; BMI 30.4
--- NOTE | 2025-02-09 13:17 | A.OFFVIS_ITS ---
Vital Signs 02/09/25 13:17 Height 5 ft 1 in Weight 161 lb BMI 30.4 BP 108/62 Blood Pressure Location Lt brachial Position Sitting Pulse 73 Pulse Oximetry (%) 98 Oxygen Delivery Method Room Air Intake Visit Reasons: Shortness of breath Allergies tetracycline Adverse Reaction (Mild, Verified 02/09/25 13:21) Stomach Upset HPI HPI Shortness of breath: Details: 64-year-old lady, nonsmoker, with underlying history of IBS, followed for environmental allergies and cough variant asthma. She has been relying mostly on albuterol MDI secondary to inhaled corticosteroids making her voice hoarse, though she does use Symbicort and duo nebs as needed. She denies recent exacerbations. [facility] Social History Patient Tobacco Use Status: Never used Tobacco Review of Systems Const Denies daytime sleepiness, Denies excessive sweating, Denies fatigue, Denies fever(s), Denies lethargy, Denies malaise, Denies night sweats, Denies snoring and Denies weight loss Eyes Denies blurry vision and Denies itchy eyes ENT Denies nasal congestion, Denies post nasal drip, Denies sinus pain, Denies sinus pressure and Denies other ( Thrush) Card Denies chest pain, Denies pedal edema, Denies dyspnea, Denies orthopnea and Denies paroxysmal nocturnal dyspnea Resp Denies cough, Denies hemoptysis, Denies excessive phlegm production, Denies dyspnea, Denies snoring and Denies wheezing GI Denies abdominal pain and Denies heartburn Musc Denies myalgias, Denies arthralgias and Denies joint swelling Skin/Breast Denies rash Neuro Denies memory loss and Denies seizure-like activity Psych Denies abnormal sleep pattern, Denies anxiety and Denies memory loss Endo Denies excessive sweating, Denies fatigue and Denies heat intolerance Erick/Lymph Denies easy bruising Aller/Immun Denies itchy eyes, Denies seasonal rhinorrhea and Denies wheezing Physical Exam Vital Signs: Last Vital Signs Pulse 73 02/09/25 13:17 BP 108/62 02/09/25 13:17 Pulse Ox 98 02/09/25 13:17 Oxygen Delivery Method Room Air 02/09/25 13:17 BMI result Body Mass Index 30.4 Const General: no acute distress and alert Nutritional Appearance: not obese Orientation/consciousness: Other orientation findings ( oriented) HEENT Head: Yes atraumatic Eyes General: appearance normal, both eyes and all related structures Sclerae: sclerae normal EOM: EOMs intact bilaterally Neck Neck: Yes supple Lymphatic: no lymphadenopathy noted Resp Effort & Inspection: normal respiratory effort and no use of accessory muscles Auscultation: clear to auscultation bilaterally Cardio Rate: regular rate Rhythm: regular rhythm Heart sounds: no gallops, no murmurs and no rubs Skin General skin exam: other ( warm) Extrem General: No clubbing, No cyanosis and No edema Assessment & Plan Assessment & Plan (1) Asthma: Code(s): J45.909 - Unspecified asthma, uncomplicated Category: Medical Plan: Reasonable control on current regimen including albuterol MDI, duo nebs, and Symbicort. Continue current regimen. (2) Environmental allergies: Code(s): Z91.09 - Other allergy status, other than to drugs and biological substances Category: Medical Plan: At this time patient is not interested in immunologic therapy. Coding Level of Care Code Est Pt Level 3 (96673) Diagnoses Asthma J45.909 Environmental allergies Z91.09
--- OUTSIDE RECORDS SUMMARY | 2025-02-09 13:46 | XMS_ITS | Clinical Summary ---
Author Organization [facility] Address [address] [place] [id number] Phone Care Team Providers Care Embroidery Worker Name Role Phone Kenia Johnson MD Primary Care Provider Allergies Active Allergy Reactions Criticality Noted Date Comments Tetracycline GI Upset 03/11/2024 Medications triamcinolone acetonide 0.1 % cream Apply 1 Application topically as needed. 3 Active cholecalciferol (VITAMIN D3) 5,000 unit tablet Take 5,000 Units by mouth daily. Active budesonide-form oterol 160-4.5 mcg/actuation inhaler Inhale 2 puffs into the lungs 2 (two) times a day. Active ascorbic acid, vitamin C, (VITAMIN C) 500 MG tablet Take 1,000 mg by mouth daily. Active albuterol 90 mcg/actuation inhaler Inhale 2 puffs into the lungs every 6 (six) hours as needed for wheezing. Active loratadine (CLARITIN) 10 mg tablet Take 10 mg by mouth daily. Active albuterol 2.5 mg /3 mL (0.083 %) nebulizer solution Take 2.5 mg by nebulization every 6 (six) hours as needed for wheezing. Active ketorolac (ACULAR) 0.5 % ophthalmic solution Place 1 drop into the right eye 4 (four) times a day. 5 mL 1 4 Active moxifloxacin (VIGAMOX) 0.5 % ophthalmic solution Place 1 drop into the right eye 4 (four) times a day. 3 mL 1 4 Active prednisoLONE acetate (PRED FORTE) 1 % ophthalmic suspension Place 1 drop into the right eye 4 (four) times a day. 5 mL 1 4 Active Encounters Date Type Department Care Team Description 01/06/2025 Ancillary Orders [facility] [address] [place] [address] Unknown, Sandra, 01/01/2025 - 01/01/2025 11:59 PM EDT Hospital Encounter [facility] [address] [place] [address] Unknown, Unknown, MD Discharge Disposition: Home or Self Care from Last 3 Months Social History Tobacco Use Types Packs/Day Years Used Date Smoking Tobacco: Never Smokeless Tobacco: Never Tobacco Cessation:Counseling Given: Not Answered Alcohol Use Standard Drinks/Week Comments Not Currently 0 (1 standard drink = 0.6 oz pur e alcohol) Education Answer Date Recorded Are you interested in more education? Not on gray e 12/09/2023 Are you concerned about learning? Not on file 12/09/2023 No 12/09/2023 No 12/09/2023 Digital Access Answer Date Recorded No 12/09/2023 No 12/09/2023 Reliable internet access at home? Not on file 12/09/2023 Device with a working camera? Not on file Intimate Partner Violence Answer Date R ecorded Are you denied basic needs s uch as food, clothing, or medical care? No 03/17/2024 In the past 12 months have y ou been in a relationship with a person who hurts, threatens, or tries to control you? No 03/17/2024 Are you denied basic needs s uch as food, clothing, or medical care? No 03/17/2024 In the past 12 months have y ou been in a relationship with a person who hurts, threatens, or tries to control you? No 03/17/2024 Comments No Sex and Gender Information Value Date Recorded Sex Assigned at Female 12/09/2023 11:52 AM EDT Legal Sex Female 11:42 AM EDT Gender Identity Female 12/09/2023 11:52 AM EDT Sexual Orientation Straight 12/09/2023 11 :52 AM EDT Last Filed Vital Signs Vital Sign Reading Time Taken Comments Blood Pressure 117/80 03/17/2024 1:36 PM EDT Pulse 79 03/17/2024 1:36 PM EDT Temperature 36.2 C (97.1 F) 03/17/2024 1:21 PM EDT Respiratory Rate 18 03/17/2024 12:13 PM EDT Oxygen Saturation 94% 03/17/2024 1:21 PM EDT Inhaled Oxygen Concentration - - Weight 77.1 kg (170 lb) 03/17/2024 12:13 PM EDT Height 154.9 cm (5' 1 ) 03/17/2024 12:13 PM EDT Body Mass Index 32.12 03/17/2024 12:13 PM EDT Plan of Treatment Upcoming Encounters Date Type Department Care Team (Late st Contact Info) Description 04/15/2025 11:20 AM EDT Office Visit [address] [place] [address] Alec Mcclendon MD [address] [place] [id number] [email or web address] Health Maintenance Due Date Last Done Comments Adult Td,Tdap Booster 1960 LIPID PANEL 1960 DEPRESSION SCREENING 1974 HEPATITIS C SCREENING 1980 HIV ONE-TIME SCREENING (18-6 5 YEARS) 1980 PAP SMEAR 1983 SCREENING FOR DIABETES 1997 COLOGUARD 2007 COLONOSCOPY 2007 COLORECTAL CANCER SCREENING 2007 FIT TEST 2007 FOBT 2007 SIGMOIDOSCOPY 2007 VIRTUAL COLONOSCOPY 2007 PNEUMOCOCCAL VACCINES (50+ years) (1 of 1 - PCV) 2012 ZOSTER VACCINES (1 of 2) 2012 COVID-19 VACCINE ( - 2023-2 5 season) 2024 10/21/2020, 09/22/2020 MAMMOGRAM 06/01/2026 06/01/2024, 06/01/2024 RSV VACCINE (1 - 1-dose 75+ series) 2037 SMOKING STATUS SCREENING (On ce After 26 Yrs) Completed 04/15/2024 HEPATITIS A VACCINES Aged Out No long er eligible based on patient's age to complete this topic HIB VACCINES Aged Out No longer eligi ble based on patient's age to complete this topic MENINGOCOCCAL VACCINES (ACWY) Aged Out No longer eligible based on patient's age to complete this topic MENINGOCOCCAL VACCINES (B) Aged Out N o longer eligible based on patient's age to complete this topic Medical Devices Implanted Type Area Electrical Panel Builder Device Identifier Shelf Expiration Date Model / Serial / Lot Lens Intraocular [employer]on [id number] 21.5d - [id number] Implanted:Qty: 1 on 03/17/2024 by Alec Mcclendon MD at [facility] Right: Eye [employer] 11/09/2027 [id number] / [id number] / Procedures Procedure Name Priority Date/Time Associated Diagnosis Comments MRI SPINE MUSCULOSKELETAL FOCUS OUTSIDE (NO INTERPRETATION) Routine 01/01/2025 12:00 AM EDT from Last 3 Months Results * MRI Spine (Bone) Outside (No Interpretation) (01/01/2025 12:00 AM EDT) Narrative [facility] IMG INTERFACES - 01/06/2025 1:23 PM EDT This study is for PACS storage only and not for interpretation. us Unknown Unknown MD IMG OUTSIDE IMAGING W/OUT INT ERPRETATION Final Result [facility] IMG INTERFACES from Last 3 Months Insurance [employer] [facility] PLUS PPO [employer] GIC PLUS PPO [employer] GIC PLUS PPO [employer] PLUS PPO [employer] PLUS PPO [employer] PLUS PPO [employer] DENTAL Care Teams Embroidery Worker Relationship Specialty Start Date End Date Kenia Johnson MD [address] [place] [address] PCP - General Internal Medicine 12/09/23 Additional Source Comments The information contained in this document represents components of the legal health record. It is not the complete legal health record.[facility]
--- OUTSIDE RECORDS SUMMARY | 2025-02-09 13:46 | XMS_ITS | Clinical Summary ---
Author Organization [facility] Address [address] [place] [address] Phone Care Team Providers Care Hide Dropper Name Role Phone Kenia Johnson MD Primary Care Provider [phone] Surgical History Surgery Date Site/Laterality Comments BREAST [...] 06/01/2024 7:02 AM EST Plan of Treatment Upcoming Encounters Date Type Department Care Team (Late st Contact Info) Description 06/07/2025 7:15 AM EST [facility]ointment [facility] [address] [phone] 06/07/2025 8:00 AM EST Appointment [facility] Bone Density [address] [place] [phone] Health Maintenance Due Date Last Done Comments Pneumococcal Vaccine: 50+ Years (1 of 2 - PCV) 1981 Cervical Cancer Screening: Pap Smear 1983 Zoster Vaccines (1 of 2) 2012 RSV Immunization Adult Patients (1 - Risk 60-74 years 1-dose series) 2022 Colorectal Cancer Screening: Colonoscopy 06/10/2022 HIV Screening 06/10/2022 Hepatitis C Screening 06/10/2022 Social Influencers of Health Screening 06/10/2022 COVID-19 Vaccine (3 - season) 2024 10/21/2020, 09/22/2020 Depression Screening 07/08/2024 Influenza Vaccine (#1) 2025 , 03/26/2023, 05/25/2021, Additional history exists Breast Cancer Screening 06/01/2026 06/01/20 24, 05/10/2023, 05/07/2022, Additional history exists Osteoporosis Screening (Bone Density Screening) 06/04/2028 06/04/2018 DTaP,Tdap,and Td Vaccines (3 - Td or Tdap) 03/31/2034 03/31/2024, 05/11/2013 HIB Vaccines Aged Out No longer eligi [...] age to complete this topic Meningococcal B Vaccine Aged Out No l onger eligible based on patient's age to complete [...] Encounter for screening mammogram for breast cancer ROXANA DEXA AXIAL SKELETON Routine 06/04/2018 4:49 PM [...] year. Mammo Location: [facility], [address] [place] [address], [id number], . -------- FINAL REPORT -------- Dictated By: Cadence Porras Dictated Date: 06/01/2024 11:26 ET Assigned Physician: Cadence Porras Reviewed and Electronically Signed By: Cadence Porras Signed Date: 06/01/2024 11:28 ET Workstation ID: [id number] Transcribed By: Self Edit Transcribed Date: 06/01/2024 11:26 ET Narrative 06/01/2024 11:28 AM EST HISTORY: Screening. Excisional biopsy of the left breast in 2004, pathology benign. Paternal great aunt had breast carcinoma. COMPARISON: 05/10/23, 05/07/22, 05/04/21 TECHNIQUE: Bilateral digital breast tomosynthesis was performed in the CC and MLO projections. Computer aided detection with [employer] AI 3D 3.1 was employed. BREAST DENSITY: B [...] Excisional biopsy of the left breast in 2004,pathology benign. Paternal great aunt had breast carcinoma. COMPARISON: 05/10/23, 05/07/22, 05/04/21 TECHNIQUE: Bilateral digital breast tomosynthesis was performed in the CCand MLO projections. Computer aided detection with [employer] Social DJ 3D 3.1was employed. BREAST DENSITY: B - [...] year. Mammo Location: [facility], [address] [place] [address], [phone], . -------- FINAL REPORT -------- Dictated By: Cadence Porras Dictated Date: 06/01/2024 11:26 ET Assigned Physician: Cadence Porras Reviewed and Electronically Signed By: Cadence Porras Signed Date: 06/01/2024 11:28 ET Workstation ID: [id number] Transcribed By: Self Edit Transcribed Date: 06/01/2024 11:26 ET us Self Referral [facility] IMG BI PROCEDURES Final Resul t * ROXANA DEXA AXIAL SKELETON (06/04/2018 4:49 PM EST) Anatomical Region Laterality Modality Mammography 06/03/2018 2:39 PM EST Narrative 06/04/2018 4:49 PM EST [facility] Diagnostic Imaging Department [address] [place] [id number] Patient: JOJO OWENS I /Age/Sex: 1960 - 57 - F Unit#: [id number] Location/Status: SPDIMAM/REG CLI Mnemonic/Ordering Site: MAMDEXAAX/SPMAM Ordering Physician: FELIPA BESS CNM [facility] Dexa Axial Skeleton - 06/03/18 - 1500 [facility] Dexa Axial Skeleton INDICATION: POSTMENOPAUSAL Technique: [...] FRAX estimate if patient has received treatment. [id number] A report detailing these results has been enclosed. Dictating Physician: GUSTAVO JETER MD Electronically Signed by: GUSTAVO JETER MD Dic Date/Time: 06/04/181648 Sign date/Time: 06/04/181648 Procedure Note Gustavo Jeter MD - 06/26/2022 [facility] Diagnostic Imaging Department [address] [place] [address] Patient: JOJO OWENS Odalis /Age/Sex: 1960 - 57 - F Unit#: [id number] Location/Status: SPDIMAM/REG CLI Mnemonic[facility] Ordering Physician: FELIPA BESS CNM [facility] Dexa Axial Skeleton - 06/03/18 - 1500 [facility] Dexa Axial Skeleton INDICATION: POSTMENOPAUSAL Technique: [...] than FRAXestimate if patient has received treatment. [id number] A report detailing these results has been enclosed. Dictating Physician: GUSTAVO JETER MD Electronically Signed by: GUSTAVO JETER MD Dic Date/Time: 06/04/181648 Sign date/Time: 11/28/18 1649 Felipa Bess CNM IMG BI PROCEDURES Final Result from Last 3 Months or Most Recently Relevant to Health Maintenance Insurance [employer] Care Teams Hide Dropper Relationship Specialty Start Date End Date Kenia Johnson MD [address] [place] [address] PCP - General Internal Medicine 05/04/24
== END 2025-02-09 13:32 | disposition home or self-care (01) ==
LOC: HO.HPS 13:08
PROVIDERS: PCP Internal Medicine; Visit Provider Internal Medicine Pulmonary Disease
DX: J45.909 Unspecified asthma, uncomplicated (principal); Z91.09 Other allergy status, other than to drugs and biological substances
CPT/HCPCS: 99213